=== PATIENT | female | born 1985 | race Caucasian/White ===

== ENCOUNTER → 2024-06-16 07:42 | Outpatient (REF) | payer OTHER, SELFPAY | LOC: PNTC 07:42 | PROVIDERS: ATTENDING PHYSICIAN Obstetrics & Gynecology | DX: Z36.0 Encounter for antenatal screening for chromosomal anomalies (principal) | CPT/HCPCS: 76801; 76813 ==

== ENCOUNTER → 2024-07-09 08:26 | Outpatient (REF) | payer OTHER, SELFPAY | LOC: PNTC 08:26 | PROVIDERS: ATTENDING PHYSICIAN Obstetrics & Gynecology | DX: O99.210 Obesity complicating pregnancy, unspecified trimester (principal); Q51.3 Bicornate uterus | CPT/HCPCS: 76805 ==

== ENCOUNTER → 2024-08-11 07:53 | Outpatient (REF) | payer OTHER, SELFPAY | LOC: PNTC 07:53 | PROVIDERS: ATTENDING PHYSICIAN Obstetrics & Gynecology | DX: O99.210 Obesity complicating pregnancy, unspecified trimester (principal); Q51.3 Bicornate uterus | CPT/HCPCS: 76811; 76817 ==

== ENCOUNTER → 2024-08-31 07:37 | Outpatient (REF) | payer OTHER, SELFPAY | LOC: PNTC 07:37 | PROVIDERS: ATTENDING PHYSICIAN Student in an Organized Health Care Education/Training Program | DX: O09.529 Supervision of elderly multigravida, unspecified trimester (principal); O99.210 Obesity complicating pregnancy, unspecified trimester; Q51.3 Bicornate uterus | CPT/HCPCS: 76815; 76817 ==

== ENCOUNTER → 2024-09-10 08:45 | Outpatient (REF) | payer OTHER, SELFPAY | LOC: PNTC 08:45 | PROVIDERS: ATTENDING PHYSICIAN Obstetrics & Gynecology | DX: O09.529 Supervision of elderly multigravida, unspecified trimester (principal); O99.210 Obesity complicating pregnancy, unspecified trimester; Q51.3 Bicornate uterus | CPT/HCPCS: 76816 ==

== ENCOUNTER → 2024-10-08 08:54 | Outpatient (REF) | payer OTHER, SELFPAY | LOC: PNTC 08:54 | PROVIDERS: ATTENDING PHYSICIAN Obstetrics & Gynecology | DX: O09.529 Supervision of elderly multigravida, unspecified trimester (principal); O99.210 Obesity complicating pregnancy, unspecified trimester; Q51.3 Bicornate uterus | CPT/HCPCS: 76816 ==

== ENCOUNTER → 2024-11-12 08:37 | Outpatient (REF) | payer OTHER, SELFPAY | LOC: PNTC 08:37 | PROVIDERS: ATTENDING PHYSICIAN Obstetrics & Gynecology | DX: O09.529 Supervision of elderly multigravida, unspecified trimester (principal); O99.210 Obesity complicating pregnancy, unspecified trimester; Q51.3 Bicornate uterus | CPT/HCPCS: 59025; 76816 ==

== ENCOUNTER → 2024-11-19 08:29 | Outpatient (REF) | payer OTHER, SELFPAY | LOC: PNTC 08:29 | PROVIDERS: ATTENDING PHYSICIAN Obstetrics & Gynecology | DX: O09.529 Supervision of elderly multigravida, unspecified trimester (principal); O99.210 Obesity complicating pregnancy, unspecified trimester; O34.00 Maternal care for unspecified congenital malformation of uterus, unspecified trimester | CPT/HCPCS: 59025; 76815 ==

== ENCOUNTER → 2024-11-26 08:31 | Outpatient (REF) | payer OTHER, SELFPAY | LOC: PNTC 08:31 | PROVIDERS: ATTENDING PHYSICIAN Obstetrics & Gynecology | DX: O99.210 Obesity complicating pregnancy, unspecified trimester (principal); O09.529 Supervision of elderly multigravida, unspecified trimester; Q51.3 Bicornate uterus | CPT/HCPCS: 36415; 59025; 76815 ==

== ENCOUNTER 2024-12-03 08:40 | Observation (INO) | payer OTHER, SELFPAY ==
[2024-12-03 08:50] VITALS: BP 119/82; BMI 34.3
== END 2024-12-03 10:30 | disposition home or self-care (01) ==
LOC: LDRP 08:40
PROVIDERS: ADMITTING PHYSICIAN Obstetrics & Gynecology; FAMILY PHYSICIAN Family Medicine
DX: O36.8330 Maternal care for abnormalities of the fetal heart rate or rhythm, third trimester, not applicable or unspecified (principal); O99.820 Streptococcus B carrier state complicating pregnancy; Z3A.37 37 weeks gestation of pregnancy; Z88.0 Allergy status to penicillin; Z88.2 Allergy status to sulfonamides; O34.03 Maternal care for unspecified congenital malformation of uterus, third trimester; Q51.3 Bicornate uterus; O09.513 Supervision of elderly primigravida, third trimester; Z82.49 Family history of ischemic heart disease and other diseases of the circulatory system; Z80.52 Family history of malignant neoplasm of bladder; Z80.8 Family history of malignant neoplasm of other organs or systems
CPT/HCPCS: 36415; 86850; 86900; 86901; G0378

== ENCOUNTER → 2024-12-10 08:35 | Outpatient (REF) | payer OTHER, SELFPAY | LOC: PNTC 08:35 | PROVIDERS: ATTENDING PHYSICIAN Obstetrics & Gynecology | DX: O09.523 Supervision of elderly multigravida, third trimester (principal); O99.213 Obesity complicating pregnancy, third trimester; O34.03 Maternal care for unspecified congenital malformation of uterus, third trimester | CPT/HCPCS: 59025; 76816 ==

== ENCOUNTER → 2024-12-17 08:36 | Outpatient (REF) | payer OTHER, SELFPAY | LOC: PNTC 08:36 | PROVIDERS: ATTENDING PHYSICIAN Obstetrics & Gynecology | DX: O09.523 Supervision of elderly multigravida, third trimester (principal); O99.213 Obesity complicating pregnancy, third trimester; Q51.3 Bicornate uterus; O36.63X9 Maternal care for excessive fetal growth, third trimester, other fetus | CPT/HCPCS: 59025; 76815 ==

== ENCOUNTER 2024-12-22 16:47 | Inpatient (IN) | payer OTHER, SELFPAY ==
[2024-12-22 17:04] VITALS: BP 136/87; BMI 34.3
[2024-12-22 17:51] LABS: Hematocrit 37.5 % (37.0-47.0); Hemoglobin 12.6 g/dL (12.0-16.0); Mean Corp Hgb Conc. 33.6 g/dL (33.0-37.0); Mean Corpuscular Volume 91.0 fL (81.0-99.0); Nucleated Red Blood Cells % 0 %; Platelet Count 258 10^3/uL (130-400); Red Cell Dist. Width 13.3 % (11.5-14.5)
[2024-12-22] MEDS: VANCOCIN 540 MG IV (18:01)
[2024-12-22] MEDS: LR 1000 IV (18:02)
[2024-12-22] MEDS: VALTREX 500 MG PO (22:00)
[2024-12-22] MEDS: SUBLIMAZE 100 MCG EPIDURAL (22:54)
[2024-12-22] MEDS: FENTANYL/BUPIVACAINE 100 EPIDURAL (22:54)
[2024-12-23] MEDS: VANCOCIN 540 MG IV (01:59)
[2024-12-23] MEDS: LR 1000 IV (02:00)
[2024-12-23] MEDS: TYLENOL 650 MG PO ×2 (06:37→20:35)
[2024-12-23] MEDS: FENTANYL/BUPIVACAINE 100 EPIDURAL (07:29)
[2024-12-23] MEDS: TUMS CHEWABLE TABLET 400 MG PO (08:00)
[2024-12-23 10:00] LABS: Cord VBG B.E. - POC 1.7 mmol/L; Cord VBG HCO3 - POC 26 mmol/L; Cord VBG O2 Sat % - POC 66.8 %; Cord VBG pCO2 - POC 40 mmHg; Cord VBG pH - POC 7.43; Cord VBG pO2 - POC 34 mmHg
[2024-12-23 10:36] LABS: Cord ABG B.E. - POC -4.5 mmol/L; Cord ABG HCO3 - POC 28 mmol/L; Cord ABG pCO2 - POC 88 mmHg; Cord ABG pH - POC 7.11; Cord ABG pO2 - POC < 18 mmHg
[2024-12-23] MEDS: PITOCIN 30 UNITS/NSS 500 ML IV (11:02)
[2024-12-23] MEDS: VANCOCIN IV (11:03)
[2024-12-23] MEDS: VALTREX PO (11:03)
[2024-12-23] MEDS: MOTRIN 600 MG PO ×2 (14:04→20:35)
[2024-12-23] MEDS: COLACE 100 MG PO (20:41)
[2024-12-24] MEDS: TYLENOL 650 MG PO ×3 (05:09→20:00)
[2024-12-24] MEDS: MOTRIN 600 MG PO ×3 (05:09→20:00)
[2024-12-24 05:35] LABS: Hematocrit 30.5 % (37.0-47.0); Hemoglobin 10.1 g/dL (12.0-16.0)
[2024-12-24] MEDS: COLACE 100 MG PO ×2 (08:10→20:00)
[2024-12-24] MEDS: FEOSOL 325 MG PO (08:10)
[2024-12-24] MEDS: HYDROCORTISONE 2.5% OINTMENT 1 APPLIC TOPICAL (20:01)
[2024-12-25] MEDS: TYLENOL 650 MG PO ×2 (04:49→11:10)
[2024-12-25] MEDS: MOTRIN 600 MG PO ×2 (04:49→11:10)
[2024-12-25] MEDS: COLACE 100 MG PO (08:06)
[2024-12-25] MEDS: FEOSOL 325 MG PO (08:06)
[2024-12-25] MEDS: HYDROCORTISONE 2.5% OINTMENT 1 APPLIC TOPICAL (08:07)
[2024-12-25 11:43] LABS: Syphilis/T. pallidum Ab Reflex Negative (Negative)
== END 2024-12-25 13:31 | disposition home or self-care (01) | DRG 806 ==
LOC: LDRP 16:47
PROVIDERS: Obstetrics & Gynecology; ADMITTING PHYSICIAN Obstetrics & Gynecology
PROC: 10E0XZZ Delivery of Products of Conception, External Approach (ICD-10-PCS; 2024-12-23)
PROC: 0KQM0ZZ Repair Perineum Muscle, Open Approach (ICD-10-PCS; 2024-12-23)
DX: O48.0 Post-term pregnancy (principal); O98.32 Other infections with a predominantly sexual mode of transmission complicating childbirth; Z37.0 Single live birth; Z3A.40 40 weeks gestation of pregnancy; O77.0 Labor and delivery complicated by meconium in amniotic fluid; O66.0 Obstructed labor due to shoulder dystocia; A60.00 Herpesviral infection of urogenital system, unspecified; O99.824 Streptococcus B carrier state complicating childbirth; O70.1 Second degree perineal laceration during delivery; O90.81 Anemia of the puerperium; D64.9 Anemia, unspecified; Z88.0 Allergy status to penicillin; Z88.2 Allergy status to sulfonamides
CPT/HCPCS: 85014; 85018; 85025; 86780; 86850; 86900; 86901; 88307